=== PATIENT | female | born 1945 | race Caucasian/White ===

== ENCOUNTER 2020-11-25 15:41 | Emergency (ER) | payer MEDICARE ==
[2020-11-25 17:45] LABS: RED BLOOD COUNT 3.09 M/UL (4.00-5.10)
[2020-11-25 17:47] LABS: HEMOGLOBIN 6.3 gm/dl (12.3-15.3)
== END 2020-11-26 02:20 | disposition home or self-care (01) ==
LOC: ER1 15:41
PROVIDERS: Physician Assistant Medical
DX: D64.9 Anemia, unspecified (principal); E11.9 Type 2 diabetes mellitus without complications; I10 Essential (primary) hypertension; Z90.710 Acquired absence of both cervix and uterus; Z79.82 Long term (current) use of aspirin
CPT/HCPCS: 36430; 80053; 81001; 85018; 85025; 85610; 86850; 86900; 86901; 86920; 99284; P9016

== ENCOUNTER → 2021-03-08 | Outpatient (CLI) | payer MEDICARE ==
[~2021-03-08] VITALS: Ht 162.6 cm; Wt 59.0 kg
== END ==
LOC: OPSV 12:55
DX: D50.9 Iron deficiency anemia, unspecified (principal)
CPT/HCPCS: 96365; J1756

== ENCOUNTER 2021-03-29 17:51 | Inpatient (IN) | payer MEDICARE ==
[~2021-03-29] VITALS: Ht 165.1 cm; Wt 61.7 kg
[2021-03-29 19:12] LABS: HEMOGLOBIN 9.5 gm/dl (12.3-15.3); RED BLOOD COUNT 4.34 M/UL (4.00-5.10)
[2021-03-29 19:57] LABS: BUN/CREATININE RATIO 30 (0-10)
[2021-03-30 03:55] LABS: HEMOGLOBIN 8.9 gm/dl (12.3-15.3); RED BLOOD COUNT 4.1 M/UL (4.00-5.10)
[2021-03-30 04:35] LABS: BUN/CREATININE RATIO 35 (0-10)
[2021-03-30] MEDS ORDERED: AMLODIPINE BESY10 MG PO (12:01)
[2021-03-30] MEDS ORDERED: FERATE240 MG PO (12:02)
[2021-03-30] MEDS ORDERED: ATORVASTATIN CA20 MG PO (12:02)
[2021-03-30] MEDS ORDERED: GLUCOPHAGE 500500 MG PO (12:03)
[2021-03-30] MEDS ORDERED: SERTRALINE HCL50 MG PO (12:04)
[2021-03-31 04:39] LABS: ACINETOBACTER BAUMANNII Not Detected (Negative); CANDIDA ALBICANS Not Detected (Negative); CANDIDA KRUSEI Not Detected (Negative); CANDIDA TROPICALIS Not Detected (Negative); ENTEROCOCCUS Not Detected (Negative); ESCHERICHIA COLI Not Detected (Negative); HAEMOPHILUS INFLUENZAE Not Detected (Negative); KLEBSIELLA OXYTOCA Not Detected (Negative); KLEBSIELLA PNEUMONIAE Not Detected (Negative); KPC-CARBAPENEM-RESISTANCE GENE Not Detected (Negative); PROTEUS Not Detected (Negative); PSEUDOMONAS AERUGINOSA Not Detected (Negative); SERRATIA MARCESANS Not Detected (Negative); STAPHYLOCOCCUS AUREUS Not Detected (Negative); STREP AGALACTIAE (GROUP B) Not Detected (Negative); STREP PYOGENES (GROUP A) Not Detected (Negative); STREPTOCOCCUS Not Detected (Negative); mecA (METHICILLIN RESIST GENE Not Detected (Negative); vanA/B (VANCOMYCIN RESIST GENE Not Detected (Negative)
[2021-03-31 05:51] LABS: STAPHYLOCOCCUS DETECTED (Negative)
[2021-03-31 07:56] LABS: HEMOGLOBIN 9.8 gm/dl (12.3-15.3); RED BLOOD COUNT 4.56 M/UL (4.00-5.10); WHITE BLOOD COUNT 6.6 K/UL (4.5-11.0)
[2021-03-31 08:24] LABS: BUN/CREATININE RATIO 34 (0-10)
[2021-04-01 09:21] LABS: WHITE BLOOD COUNT 7.1 K/UL (4.5-11.0)
[2021-04-01 09:40] LABS: RED BLOOD COUNT 3.69 M/UL (4.00-5.10)
[2021-04-01] MEDS ORDERED: DECADRON6 MG PO (10:32)
[2021-04-02 05:18] LABS: HEMOGLOBIN 9.2 gm/dl (12.3-15.3); WHITE BLOOD COUNT 5.8 K/UL (4.5-11.0)
[2021-04-02 05:19] LABS: RED BLOOD COUNT 4.22 M/UL (4.00-5.10)
[2021-04-02 06:26] LABS: BUN/CREATININE RATIO 31 (0-10)
== END 2021-04-02 15:04 | disposition home health service (06) | DRG 177 ==
LOC: ER1 17:51 → CDU 22:26 → MED SURG 4 22:26
PROVIDERS: Internal Medicine; Physician Assistant; ADMIT Internal Medicine
PROC: 8E0ZXY6 Isolation (ICD-10-PCS; principal; 2021-03-29)
PROC: XW033E5 Introduction of Remdesivir Anti-infective into Peripheral Vein, Percutaneous Approach, New Technology Group 5 (ICD-10-PCS; 2021-03-29)
PROC: 3E0333Z Introduction of Anti-inflammatory into Peripheral Vein, Percutaneous Approach (ICD-10-PCS; 2021-03-29)
DX: U07.1 COVID-19 (principal); J12.82 Pneumonia due to coronavirus disease 2019; J96.01 Acute respiratory failure with hypoxia; R41.0 Disorientation, unspecified; I10 Essential (primary) hypertension; E11.9 Type 2 diabetes mellitus without complications; D50.9 Iron deficiency anemia, unspecified; F41.9 Anxiety disorder, unspecified; F03.90 Unspecified dementia, unspecified severity, without behavioral disturbance, psychotic disturbance, mood disturbance, and anxiety; E78.5 Hyperlipidemia, unspecified; Z79.4 Long term (current) use of insulin; Z90.710 Acquired absence of both cervix and uterus; Z98.890 Other specified postprocedural states
CPT/HCPCS: 36415; 36600; 70450; 71045; 80048; 80053; 80202; 81001; 82550; 82553; 82803; 82962; 83036; 83540; 83605; 83735; 83874; 83880; 84100; 84484; 85025; 85027; 85652; 86140; 87040; 87077; 87150; 87186; 93005; 94640; 94664; 94760; 96374; 99285; J0456; J0696; J1100; J1630; J1650; J3370; J3486; J7030; J7070; U0002

== ENCOUNTER → 2021-04-19 | Outpatient (CLI) | payer MEDICARE ==
[~2021-04-19] VITALS: Ht 162.6 cm; Wt 59.0 kg
[~2021-04-19] MED LIST: AMLODIPINE BESY10 MG PO; ATORVASTATIN CA20 MG PO; DECADRON6 MG PO; FERATE240 MG PO; GLUCOPHAGE 500500 MG PO; SERTRALINE HCL50 MG PO
== END ==
LOC: OPSV 03-22 14:00
DX: D50.9 Iron deficiency anemia, unspecified (principal)
CPT/HCPCS: 96365; J1756

== ENCOUNTER → 2021-08-09 | Outpatient (CLI) | payer MEDICARE ==
[~2021-08-09] VITALS: Ht 162.6 cm; Wt 59.0 kg
== END ==
LOC: OPSV 08-02 11:00
DX: D50.9 Iron deficiency anemia, unspecified (principal)
CPT/HCPCS: 96365; J1756

== ENCOUNTER → 2021-08-16 | Outpatient (CLI) | payer MEDICARE ==
[~2021-08-16] VITALS: Ht 162.6 cm; Wt 59.0 kg
== END ==
LOC: OPSV 14:00
DX: D50.9 Iron deficiency anemia, unspecified (principal)
CPT/HCPCS: 96365; J1756

== ENCOUNTER → 2021-08-23 | Outpatient (CLI) | payer MEDICARE ==
[~2021-08-23] VITALS: Ht 162.6 cm; Wt 59.0 kg
== END ==
LOC: OPSV 13:53
DX: D50.9 Iron deficiency anemia, unspecified (principal)
CPT/HCPCS: 96365; J1756

== ENCOUNTER → 2021-08-30 | Outpatient (CLI) | payer MEDICARE ==
[~2021-08-30] VITALS: Ht 162.6 cm; Wt 59.0 kg
== END ==
LOC: OPSV 13:59
DX: D50.9 Iron deficiency anemia, unspecified (principal)
CPT/HCPCS: 96365; J1756

== ENCOUNTER → 2021-09-13 | Outpatient (CLI) | payer MEDICARE ==
[~2021-09-13] VITALS: Ht 162.6 cm; Wt 59.0 kg
== END ==
LOC: OPSV 09-06 14:00
DX: D50.9 Iron deficiency anemia, unspecified (principal)
CPT/HCPCS: 96365; J1756